=== PATIENT | male | born 1965 | race Caucasian/White ===

== ENCOUNTER 2017-10-01 13:47 | Emergency (ER) | payer OTHER ==
[~2017-10-01] VITALS: Ht 167.6 cm; Wt 91.5 kg
[2017-10-01 13:49] VITALS: BP 176/93; PULSE 80; RESP 16; TEMP 98.8; O2SAT 99
[2017-10-01] MEDS ORDERED: NORC5TAB PO (14:00)
--- NOTE | 2017-10-01 14:05 | PD ---
HPI Chief Complaint: Injury Time Seen by Provider: 13:53 Travel History International Travel<30 days: No Contact w/Intl Traveler<30days: No Traveled to known affect area: No History of Present Illness HPI Patient comes emergency department for evaluation of possible right bicep injury that occurred shortly prior to arrival. Patient states that 95 pound dog was jumping in the pool and he went to catch it with his right hand causing the injury. Patient reports tenderness around distal right upper arm near the antecubital that is worse palpation and certain movement. Patient reports applying ice and Biofreeze as well as taking ibuprofen prior to coming to the emergency department seem to help some. Denies any radiation of the pain. Describes pain as a soreness. Denies any numbness or tingling. PFSH Past Medical History Medical History: Denies Significant Hx Social History Tobacco Use: No Substance Use: No Allergies-Medications (Allergen,Severity, Reaction): Coded Allergies: No Known Allergies (Unverified , 10/01/17) Reported Meds & Prescriptions Reported Meds & Active Scripts Active Nickerson (Hydrocodone-Acetaminophen) 5 Mg-325 Mg Tab 1 Tab PO Q6H PRN Review of Systems Except as stated in HPI: all other systems reviewed are Neg Physical Exam Narrative GENERAL: Well-developed, over the nourished, in no acute distress, and non-ill appearing. SKIN: Focused skin assessment warm and dry. HEAD: Atraumatic. Normocephalic. EYES: Pupils equal and round. EOMI. No scleral icterus. No injection or drainage. ENT: No nasal bleeding or discharge. Mucous membranes pink and moist. NECK: Trachea midline. Supple. No nuclear rigidity. CARDIOVASCULAR: Radial pulses 2+, intact, and equal bilaterally. Capillary refill less than 2 seconds. RESPIRATORY: No accessory muscle use. No respiratory distress. MUSCULOSKELETAL: No clubbing. No cyanosis. No edema. Full range of motion. Elbow : FROM and strength equal BL with passive flexion, extension, and pronation/supination. No laxity noted with varus and valgus maneuvers. Pulses equal BL distal to injury. Capillary refill less than 2 seconds distal to injury and equal BL. FROM distal to injury and equal BL. Strength distal to injury equal BL. NV intact distal to injury and equal BL. Flexion and extension of thumb equal BL. Equal strength and movement with abduction/ adductions of BL fingers. Manuscript Reader strength equal BL. Davis sign of the right bicep. Patient reports point tenderness over right antecubital. No crepitus, ecchymosis, or soft tissue swelling noted. NEUROLOGICAL: Awake and alert. No obvious cranial nerve deficits. Motor grossly within normal limits. Normal speech. PSYCHIATRIC: Appropriate mood and affect; insight and judgment normal. Data Data Last Documented VS Vital Signs Date Time Temp Pulse Resp B/P (MAP) Pulse Ox O2 Delivery O2 Flow Rate FiO2 10/01/17 13:49 98.8 80 16 176/93 (120) 99 Orders Orders Ed Discharge Order (10/01/17 13:59) Splint Or Brace Apply/Monitor (10/01/17 13:59) [employer] Request For Service (10/01/17 13:59) [facility] Medical Decision Making Medical Screen Exam Complete: Yes Emergency Medical Condition: Yes Differential Diagnosis Fracture, sprain, ruptured tendon, tendon/muscle tear Narrative Course There is no clinical evidence for fracture. There is no clinical evidence to suspect bony injury by exam. No obvious ligamental injury or internal derangement is noted at this time. The distal extremity appears neurovascularly intact, without evidence of neurovascular injury nor compartment syndrome. The effected limb was splinted. The patient was discharged on pain medication and given warnings for vascular compromise. The patient is to follow up with Orthopedics. The patient agrees with plan. Patient in no obvious distress upon re-evaluation. Discussed patient with Dr. Monterroso prior discharge, who is in agreement with plan of care disposition. Patient was asked if they wanted to speak to my attending, which the patient did not wish to do at this time. Any questions/concerns in reference to patient diagnosis/condition discussed and clarified prior to patient's discharge. Reinforced sheer importance of close follow up with patient's primary physician or primary care clinic. Instructed patient to return to ED immediately, if symptoms return/worsen. Patient showed understanding of above instructions. Further instructions and recommendations were detailed in discharge paperwork. Patient ambulated without difficulty out of ED at discharge. Diagnosis Primary Impression: Unspecified injury of muscle, fascia and tendon of other parts of biceps, right arm, initial encounter Referrals: Rodney Velasquez MD Patient Instructions: General Instructions, How to Use a Sling (GEN), Tendon Rupture (ED) Additional Instructions: Follow-up with orthopedic in 24-48 hours. Contact their office tomorrow for an appointment. Take all medication as prescribed. Apply ice to affected area 20 minutes prior as needed for pain. Wear sling while awake until reevaluated by orthopedic. Return to the emergency department if symptoms get worse. Med/Other Pt SpecificInfo: Prescription(s) given Scripts Hydrocodone-Acetaminophen (Nickerson) 5 Mg-325 Mg Tab 1 TAB PO Q6H Y for PAIN, #9 TAB 0 Refills Prov: Jl Monterroso MD 10/01/17 Disposition: 01 DISCHARGE HOME Condition: Stable Junaid Gamble Oct 01, 2017 14:05
[2017-10-01 14:19] VITALS: BP 167/96
== END 2017-10-01 14:20 | disposition home or self-care (01) ==
LOC: PHEFT 13:47
DX: S49.91XA Unspecified injury of right shoulder and upper arm, initial encounter (principal); W22.8XXA Striking against or struck by other objects, initial encounter
CPT/HCPCS: 99283

== ENCOUNTER → 2017-10-10 | Day surgery (SDC) | payer OTHER ==
[~2017-10-10] VITALS: Ht 167.6 cm; Wt 92.4 kg
[~2017-10-10] MED LIST: ACETAMINOPHEN 1000 MG/100 ML 100 ML IV ONE; BUPIVACAINE HCL PF 0.5% 30 ML VIAL ONE; CHLORHEXIDINE GLUCONATE 2 % 1 PACK (2 CLOTHS) TOPICAL PRN; DEXAMETHASONE SOD PHOS 4 MG/ML VIAL IV ONE; DO NOT ADM ANY ANTICOAGULANT DRUGS PRN; FAT EMULSION 20% INJ 0 ML ONE; INSULIN HUMAN REGULAR 1,000 UNITS/10 ML VIAL SQ PRN; KETOROLAC TROMETHAMINE 30 MG/ML (IVP) VIAL IVP ONE; LACTATED RINGER'S 1000 ML INJ 1,000 ML IV ONE; LACTATED RINGER'S 1000 ML IV PRN; LIDOCAINE HCL 1% PF 5 ML AMPULE ONE; LIDOCAINE HCL 1% PF 5 ML SYRINGE OTHER ONE; METOPROLOL TARTRATE 25 MG TAB PO PRN; MIDAZOLAM HCL 2 MG/2 ML VIAL ONE; NORC5TAB PO; ONDANSETRON HCL 4 MG/2 ML VIAL IV PUSH ONE; ONDANSETRON ODT 4 MG TAB PO PRN; POVIDONE IODINE 5% (ANTISEPSIS KIT) 4 APPLICATIONS EACH NARE PRN; PROPOFOL 200 MG/20 ML AMP IV ONE; ROPIVACAINE 0.5% PF INJ 30 ML VIAL ONE; SODIUM CHLORID 0.9% 500 ML IV PRN; ceFAZolin 1,000 MG/NS 100 ML IV SCH; ceFAZolin INJ 1,000 MG VIAL IV ONE; oxyCODONE/ACETAMINOPHEN 5 MG/325 MG TAB PO PRN
--- NOTE | 2017-10-10 13:17 | PD.OP ---
Operative Report Date of Surgery: Oct 10, 2017 Preoperative Diagnosis: (1) Traumatic rupture of right distal biceps tendon Postoperative Diagnosis: (1) Traumatic rupture of right distal biceps tendon Procedure: Repair right distal biceps tendon with the Arthrex tension slide mechanism. Anesthesia: General endotracheal with supplemental axillary block regional. Surgeon: Tyrone Schwarz MD Spring Tier(s): ROSS Mcintyre Operation and Findings: History and findings: This 51-year-old man was restraining his 85 pound mastiff when the dog pulled and he felt a snap in his elbow and instant pain. He had a deformity in the upper arm. Physical findings showed weakness in flexion with an obvious deformity consistent with a rupture of the distal biceps. An MRI showed changes consistent with a rupture of the distal biceps. Operative findings: The distal biceps was ruptured and avulsed from the insertion on the radial tubercle. Procedure: After adequate induction of regional and general anesthetic the patient was placed in the supine position on the operating table with the right arm on arm boards. And a pneumatic tourniquet applied to the right upper arm. The arm was then prepped with alcohol, Hibiclens and ChloraPrep. The arm was draped in the usual manner with the arm draped free. An appropriate timeout procedure was carried out. At a point about 3 cm distal to the antecubital crease, a transverse incision was made approximately 4.5-5 cm in length. The incision was deepened through the subcutaneous tissues and fascial structures which were proximally and distally and carried with the dissection carried down to the area of the tendon avulsion. A hematoma was identified. A portion of the lacertus fibrosis was identified. The biceps tendon was found proximally in the distal forearm correction distal upper arm. This was grasped with an Allis clamp. A whipstitch with the appropriate FiberWire was carried out in the usual manner. A button was placed into this after sizing the tendon. The tendon was placed back into the wound. Dissection was carefully carried out down to the radial tubercle. This was cleaned with a meraz elevator after retractors were placed. A guidepin was drilled angled about 20 to the ulnar side. This went through both cortices. An 8 mm reamer was passed over this and used to drill the socket. Copious irrigation was carried out to remove debris. The button was passed into the deep socket and fenestration in the radius. When this was locked into position the distal biceps was was advanced into the socket. A single lock suture was placed through this and tied. An 8 mm interference screw was inserted on the radial side of the tendon. When this was fully seated the seem to be caused suture was tied over the screw. The integrity of the repair. Satisfactory at this time. After copious irrigation prescription of the wound was closed in layers using 2- 0 Vicryl interrupted [id number] sutures for the fascial structures, 2-0 Vicryl interrupted simple sutures with buried knots of the subcutaneous tissue and 4-0 Monocryl continuous subcuticular closure for the skin. The wound was dressed with Steri-Strips followed by dry dressing, sterile soft and Shahid bandage. The patient was transferred from the operating room to the recovery room in satisfactory condition having tolerated the procedure well. Counts: Correct. Specimens: None. Estimated blood loss: 5 mL Michelle Schwarz MD (Charles) Oct 10, 2017 13:17
[2017-10-10 14:12] VITALS: BP 159/97; PULSE 73; RESP 18; TEMP 97.2; O2SAT 97
--- NOTE | 2017-10-10 16:52 | EKG ---
Date Performed: 10/10/2017 Time Performed: 09:27:39 PTAGE: 51 years EKG: Sinus rhythm NORMAL ECG NO PREVIOUS TRACING DOCTOR: Maria Alejandra Rosales Interpretating Date/Time 10/10/2017 16:48:45
== END | disposition home or self-care (01) ==
LOC: HSDC 08:17
PROVIDERS: ATTEND Orthopaedic Surgery
DX: M66.321 Spontaneous rupture of flexor tendons, right upper arm (principal); X50.0XXA Overexertion from strenuous movement or load, initial encounter; Z01.810 Encounter for preprocedural cardiovascular examination
CPT/HCPCS: 01710; 24342; 64415; 93005; J0131; J0690; J1100; J2250; J2405; J2795; J3010; J7120